=== PATIENT | female | born 1970 | race Caucasian/White ===

== ENCOUNTER 2018-02-07 07:15 | Emergency (ER) | payer SELFPAY ==
[2018-02-07 07:31] VITALS: BP 117/82
--- NOTE | 2018-02-07 08:07 | UC ---
Throat Pain/Nasal Jah HPI - HPI Summary HPI Summary: pt reports sudden onset of sore throat, fever, [place] that started yesterday morning when she woke up and got progressively worse as the day went by. tmax 101. pt can swalolow her own spit and drink ok but st interfers with eating a bit. denies body aches, cough, ear pain. - History of Current Complaint Chief Complaint: UCRespiratory Stated Complaint: FEVER, SORE THROAT Time Seen by Provider: 02/07/18 07:32 Hx Obtained From: Patient ?: No Onset/Duration: Sudden Onset, Lasting Days, Still Present, Worse Since - last night Severity: Moderate Pain Intensity: 4 Cough: None Associated Signs & Symptoms: Positive: Dysphagia, Fever. Negative: FB Sensation , Drooling, Hoarseness, Sinus Discomfort, Nasal Discharge, Vomiting, Rash - Allergies/Home Medications Allergies/Adverse Reactions: Allergies Allergy/AdvReac Type Severity Reaction Status Date / Time ciprofloxacin Allergy Swelling Verified 02/07/18 07:28 Of Face,Lips,& Throat Penicillins Allergy Unknown Verified 02/07/18 07:28 Reaction Details PMH/Surg Hx/FS Hx/Imm Hx Previously Healthy: Yes - Surgical History Surgical History: None - Family History Known Family History: Positive: Cardiac Disease, Diabetes - Social History Occupation: Employed Full-time Lives: With Family Alcohol Use: Occasionally Substance Use Type: None Smoking Status (MU): Never Smoked Tobacco Review of Systems Constitutional: Fever, Chills Skin: Negative Eyes: Negative ENT: Sore Throat Respiratory: Negative Cardiovascular: Negative Gastrointestinal: Negative Genitourinary: Negative Musculoskeletal: Negative Neurological: Headache Psychological: Negative All Other Systems Reviewed And Are Negative: Yes Physical Exam Triage Information Reviewed: Yes Appearance: Well-Appearing, No Pain Distress, Well-Nourished Vital Signs: Initial Vital Signs Temp 99.1 F 02/07/18 07:28 Pulse 93 02/07/18 07:28 Resp 14 02/07/18 07:28 BP 117/82 02/07/18 07:28 Pulse Ox 99 02/07/18 07:28 Vital Signs Reviewed: Yes Eyes: Positive: Conjunctiva Clear. Negative: Discharge ENT: Positive: Hearing grossly normal, Pharyngeal erythema, TMs normal, Tonsillar swelling. Negative: Nasal congestion, Nasal drainage, Tonsillar exudate, Trismus, Muffled voice, Hoarse voice, Sinus tenderness Neck: Positive: Supple, Tenderness @, Enlarged Nodes @ Respiratory: Positive: Lungs clear, Normal breath sounds, No respiratory distress, No accessory muscle use Cardiovascular: Positive: RRR, No Murmur Musculoskeletal Exam: Normal Neurological: Positive: Alert, Muscle Tone Normal Psychological: Positive: Age Appropriate Behavior Skin Exam: Normal Throat Pain/Nasal Course/Dx - Differential Dx/Diagnosis Differential Diagnosis/HQI/PQRI: Pharyngitis, Sinusitis, Tonsillitis, URI Provider Diagnoses: sore throat Discharge - Sign-Out/Discharge Documenting (check all that apply): Discharge - Discharge Plan Condition: Stable Disposition: HOME Prescriptions: Magic Mouth Was-DUSTIN/MAAL/LIDO* 5 ml SWISH SPIT QID PRN #100 ml PRN Reason: Pain Patient Education Materials: Pharyngitis (ED) Forms: *Work Release Referrals: No Primary Care Phys,NOPCP [Primary Care Provider] - - Billing Disposition and Condition Condition: STABLE Disposition: HOME
== END 2018-02-07 08:03 | disposition home or self-care (01) ==
LOC: UCCORT 07:15
DX: J02.9 Acute pharyngitis, unspecified (principal); Z88.1 Allergy status to other antibiotic agents; Z88.0 Allergy status to penicillin
CPT/HCPCS: 87651; 99202; G0463

== ENCOUNTER 2018-02-23 07:33 | Emergency (ER) | payer SELFPAY ==
[2018-02-23 09:17] VITALS: BP 126/79
--- NOTE | 2018-02-23 10:32 | UC ---
Lower Extremity/Ankle HPI - HPI Summary HPI Summary: slipped on a wet floor at work last pm and "hyper extended my right knee". c/o pain behind her knee that is more sore this am. denies any other injury. - History of Current Complaint Chief Complaint: UCLowerExtremity Stated Complaint: RIGHT LEG INJURY - WC Time Seen by Provider: 02/23/18 10:20 Hx Obtained From: Patient Hx Last Menstrual Period: last night Onset/Duration: Sudden Onset Pain Intensity: 5 Aggravating Factor(s): Standing, Ambulation Alleviating Factor(s): Rest Able to Bear Weight: Yes Related History: Occupational Injury - Risk Factors Septic Arthritis Risk Factor: Negative - Allergies/Home Medications Allergies/Adverse Reactions: Allergies Allergy/AdvReac Type Severity Reaction Status Date / Time ciprofloxacin Allergy Swelling Verified 02/23/18 09:17 Of Face,Lips,& Throat Penicillins Allergy Unknown Verified 02/23/18 09:17 Reaction Details acetaminophen [From Vicodin] AdvReac Dizziness Verified 02/23/18 09:19 hydrocodone [From Vicodin] AdvReac Dizziness Verified 02/23/18 09:19 Home Medications: Home Medications NK [No Home Medications Reported] 02/23/18 [History Confirmed 02/23/18] PMH/Surg Hx/FS Hx/Imm Hx Previously Healthy: Yes - Surgical History Surgical History: None - Family History Known Family History: Positive: Cardiac Disease, Diabetes - Social History Occupation: Employed Full-time Lives: Alone Alcohol Use: Rare Substance Use Type: None Smoking Status (MU): Never Smoked Tobacco - Immunization History Vaccination Up to Date: Yes Review of Systems Constitutional: Negative Skin: Negative Eyes: Negative ENT: Negative Respiratory: Negative Cardiovascular: Negative Gastrointestinal: Negative Genitourinary: Negative Motor: Negative Neurovascular: Negative Musculoskeletal: Other: - pain to mm behind R knee Neurological: Negative Psychological: Negative Is Patient Immunocompromised?: No All Other Systems Reviewed And Are Negative: Yes Physical Exam Triage Information Reviewed: Yes Appearance: Well-Appearing Vital Signs: Initial Vital Signs Temp 97.8 F 02/23/18 09:07 Pulse 73 02/23/18 09:07 Resp 18 02/23/18 09:07 BP 126/79 02/23/18 09:07 Pulse Ox 100 02/23/18 09:07 Vital Signs Reviewed: Yes Eyes: Positive: Conjunctiva Clear ENT: Positive: Normal ENT inspection Neck: Positive: Supple, Nontender, No Lymphadenopathy Respiratory: Positive: Lungs clear, Normal breath sounds Cardiovascular: Positive: RRR, No Murmur Abdomen Description: Positive: Nontender, No Organomegaly, Soft Bowel Sounds: Positive: Present Musculoskeletal: Positive: Other: - RLE: bare and compared to LLE, Mild swelling to R distal hamstring. Lower 3rd of hamstring with tenderness. Hip, knee, achilles, ankle and foot are all atraumatic. Knee has no laxity. Steady gait and active/passive ROM RLE is intact. No bony deformities or tenderness. Neurological: Positive: Alert Psychological: Positive: Age Appropriate Behavior Skin Exam: Normal Lower Extremity Course/Dx - Course Course Of Treatment: exam c/w hamstring strain. will julia, otc nsaid prn and crutches with ortho f/u and limited duty. - Differential Dx/Diagnosis Provider Diagnoses: Strain R distal hamstring Discharge - Sign-Out/Discharge Documenting (check all that apply): Discharge/Admit/Transfer - Discharge Plan Condition: Stable Disposition: HOME Patient Education Materials: Hamstring Injury (ED) Forms: *Work Release Referrals: Bill Austin MD [Medical Doctor] - 6 Days Additional Instructions: JULIA TO RIGHT THIGH AND CRUTCHES UNTIL CLEARED BY ORTHOPEDICS. REMOVE JULIA AT BEDTIME. TAKE OVER THE COUNTER MOTRIN NEEDED PER LABEL. - Billing Disposition and Condition Condition: STABLE Disposition: HOME
== END 2018-02-23 10:56 | disposition home or self-care (01) ==
LOC: UCCORT 07:33
DX: S86.811A Strain of other muscle(s) and tendon(s) at lower leg level, right leg, initial encounter (principal); W18.49XA Other slipping, tripping and stumbling without falling, initial encounter; X50.9XXA Other and unspecified overexertion or strenuous movements or postures, initial encounter; Y92.9 Unspecified place or not applicable; Z88.0 Allergy status to penicillin; Z88.3 Allergy status to other anti-infective agents; Z88.5 Allergy status to narcotic agent; Z88.6 Allergy status to analgesic agent
CPT/HCPCS: 99212; G0463

== ENCOUNTER 2018-08-15 19:40 | Emergency (ER) | payer SELFPAY ==
--- NOTE | 2018-08-15 20:10 | UC ---
Abdominal Pain Female HPI - HPI Summary HPI Summary: Sudden onset vomiting at 3 PM. No diarrhea. Now dry heaves. No fevers/ sweats or chills. - History of Current Complaint Chief Complaint: UCGI Stated Complaint: VOMITING Hx Obtained From: Patient Hx Last Menstrual Period: 08/10/18 ?: No Onset/Duration: Sudden Onset, Lasting Hours - 5, Still Present Severity Initially: Severe Severity Currently: Severe Pain Intensity: 8 Location: Epigastric Radiates: No Character: Cramping, Sharp Aggravating Factor(s): Nothing Alleviating Factor(s): Nothing Associated Signs and Symptoms: Positive: Nausea, Vomiting - > 10 times since 3 PM with dry heaves.. Negative: Fever, Cough, Chest Pain, Constipation, Diarrhea Allergies/Adverse Reactions: Allergies Allergy/AdvReac Type Severity Reaction Status Date / Time ciprofloxacin Allergy Swelling Verified 08/15/18 19:49 Of Face,Lips,& Throat Penicillins Allergy Unknown Verified 08/15/18 19:49 Reaction Details hydrocodone [From Vicodin] AdvReac Dizziness Verified 08/15/18 19:49 PMH/Surg Hx/FS Hx/Imm Hx Previously Healthy: Yes - Surgical History Surgical History: None - Family History Known Family History: Positive: Cardiac Disease, Hypertension, Diabetes - Social History Occupation: Employed Full-time Lives: Alone Alcohol Use: Rare Substance Use Type: None Smoking Status (MU): Never Smoked Tobacco - Immunization History Vaccination Up to Date: Yes Review of Systems Gastrointestinal: Abdominal Pain, Vomiting Is Patient Immunocompromised?: No All Other Systems Reviewed And Are Negative: Yes Physical Exam Triage Information Reviewed: Yes Appearance: Ill-Appearing, Pain Distress, Obese Vital Signs: Initial Vital Signs Temp 98.7 F 08/15/18 19:51 Pulse 80 08/15/18 19:51 Resp 20 08/15/18 19:51 BP 147/90 08/15/18 19:51 Pulse Ox 100 08/15/18 19:51 Vital Signs Reviewed: Yes Eyes: Positive: Conjunctiva Clear ENT: Positive: Pharynx normal - Mucus membranes moist, TMs normal Neck exam: Normal Respiratory Exam: Normal Cardiovascular Exam: Normal Abdomen Description: Positive: No Organomegaly. Negative: Nontender - Tender epigastric region, Peritoneal Signs Bowel Sounds: Positive: Present Musculoskeletal Exam: Normal Neurological Exam: Normal Psychological Exam: Normal Skin Exam: Normal Re-Evaluation - Re-Evaluation First Eval Change: Unchanged - was feeling better then started vomiting again. Will give zofran again. Did have urine output. Second Eval Change: Improved - is feeling better after second zofran. Will try to go home Abd Pain Female Course/Dx - Course Course Of Treatment: Discussed home with PO zofran vs going straight to the hospital. Patient feels good to go home but will go to the ER if getting worse. - Differential Dx/Diagnosis Differential Diagnosis: Appendicitis, Gall Bladder Disease, Pancreatitis Provider Diagnoses: Acute vomiting. Epigastric abdominal pain Discharge - Sign-Out/Discharge Documenting (check all that apply): Patient Departure All imaging exams completed and their final reports reviewed: No Studies - Discharge Plan Condition: Improved Disposition: HOME Prescriptions: Ondansetron [Zofran Odt] 4 mg PO Q6HR PRN #10 tab.rapdis PRN Reason: Nausea Patient Education Materials: Acute Nausea and Vomiting (ED), Acute Abdominal Pain (ED), Ondansetron (By mouth) Forms: *Work Release Referrals: No Primary Care Phys,NOPCP [Primary Care Provider] - Additional Instructions: Sips of ice cold water to start with. Avoid dairy and fatty foods. Wheat toast with jelly for first food. - Billing Disposition and Condition Condition: IMPROVED Disposition: Home
[2018-08-15] MEDS ORDERED: Ondansetron INJ* 2 MG/ML VIAL IV ONE ×2 (20:16→21:20)
[2018-08-15] MEDS ORDERED: Ondansetron ODT TAB* 4 MG PO ONE (21:44)
[2018-08-15 21:45] VITALS: BP 151/86
[2018-08-16 11:10] LABS: EGFR Non-African American 57.4 (>60)
== END 2018-08-15 21:57 | disposition home or self-care (01) ==
LOC: UCCORT 19:40
DX: R11.10 Vomiting, unspecified (principal); R10.13 Epigastric pain; Z88.0 Allergy status to penicillin; Z88.1 Allergy status to other antibiotic agents; Z88.5 Allergy status to narcotic agent
CPT/HCPCS: 36415; 80053; 83690; 96361; 96374; 96376; 99202; A9270-GY; G0463; J2405